=== PATIENT | male | born 1975 | race Caucasian/White ===

== ENCOUNTER 2023-04-24 19:22 | Inpatient (IN) | payer MEDICAID ==
[~2023-04-24] VITALS: Ht 165.1 cm; Wt 79.3 kg
[2023-04-24] MEDS ORDERED: HALOPERIDOL 5 MG TABLET PO PRN (23:15)
[2023-04-24 23:30] VITALS: BP 130/100; PULSE 101; RESP 20; TEMP 98.5; O2SAT 98
[2023-04-24] MEDS: ZOLPIDEM TARTRATE 10 MG TABLET PO PRN (23:58)
[2023-04-25] VITALS (11 sets, daily range): BP systolic 120–141; BP diastolic 71–96; PULSE 73–102; RESP 17–19; TEMP 97.7–98.5; O2SAT 97–98
[2023-04-25] MEDS: LORazepam 2 MG TABLET PO PRN ×2 (07:08→12:59)
[2023-04-25] MEDS ORDERED: BACITRACIN 28 GM OINTMENT TP PRN (08:45)
[2023-04-25] MEDS ORDERED: PETROLATUM,WHITE 28 GM JELLY TP PRN (08:45)
[2023-04-25] MEDS ORDERED: DOCUSATE SODIUM 100 MG CAPSULE PO PRN (08:45)
[2023-04-25] MEDS ORDERED: ACETAMINOPHEN 325 MG TABLET PO PRN (08:45)
[2023-04-25] MEDS ORDERED: IBUPROFEN 600 MG TABLET PO PRN (08:45)
[2023-04-25] MEDS ORDERED: LOPERAMIDE HCL 2 MG CAPSULE PO PRN (08:45)
[2023-04-25] MEDS ORDERED: ALBUTEROL SULFATE HFA 90 MCG/PUFF 8 GM INHALER IH PRN (08:45)
[2023-04-25] MEDS ORDERED: MAG HYDROX/AL HYDROX/SIMETH ES 30 ML SUSPENSION UDCUP PO PRN (08:45)
[2023-04-25] MEDS ORDERED: ONDANSETRON HCL 4 MG TABLET PO PRN (08:45)
[2023-04-25] MEDS ORDERED: CloNIDine HCL 0.1 MG TABLET PO PRN (08:45)
[2023-04-25] MEDS ORDERED: BENZOCAINE/MENTHOL LOZENGE PO PRN (08:45)
[2023-04-25] MEDS ORDERED: OMEPRAZOLE 20 MG CAPSULE PO PRN (08:45)
[2023-04-25] MEDS ORDERED: MAGNESIUM HYDROXIDE SUSPENSION 30 ML UDCUP PO PRN (08:45)
[2023-04-25 09:02] LABS: EOSINOPHILS % (AUTO) 1.1 % (1.0-6.0); HEMATOCRIT 44.1 % (41-53); LYMPHOCYTES # (AUTO) 2.1 K/uL (1.0-4.8); LYMPHOCYTES % (AUTO) 31.1 % (22.0-44.0); MEAN CORPUSCULAR HEMOGLOBIN 32.3 pg (26.0-34.0); MEAN CORPUSCULAR HGB CONC 34.1 G/dL (31.0-37.0); MEAN CORPUSCULAR VOLUME 95 fL (80-100); MONOCYTES # (AUTO) 0.7 K/uL (0.1-1.0); MONOCYTES % (AUTO) 10.6 % (2.0-9.0); NEUTROPHILS # (AUTO) 3.7 K/uL (1.8-7.7); NEUTROPHILS % (AUTO) 56.2 % (40.0-70.0); PLATELET COUNT (AUTO) 258 K/uL (150-450); RED BLOOD CELL COUNT(AUTO) 4.66 MIL/uL (4.50-5.90); RED CELL DISTRIBUTION WIDTH 12.8 % (11.5-14.5)
[2023-04-25 09:14] LABS: HEMOGLOBIN A1C 4.9 % (3.8-5.6)
[2023-04-25 09:29] LABS: ALANINE AMINOTRANSFERASE 28 U/L (12-78); ALBUMIN 3.3 g/dL (3.4-5.0); ALKALINE PHOSPHATASE 83 U/L (46-116); ANION GAP 10 mmol/L (8-16); ASPARTATE AMINOTRANSFERASE 30 U/L (15-37); CALCIUM, TOTAL 8.8 mg/dL (8.8-10.5); CARBON DIOXIDE 27 mmol/L (22-29); CHLORIDE 101 mmol/L (98-107); CHOL/HDL RATIO 3.5 (4.2-7.3); CHOLESTEROL 176 mg/dL (131-200); CREATININE 0.97 mg/dL (0.60-1.30); FREE T4 (FREE THYROXINE) 0.98 ng/dL (0.76-1.46); GLOMERULAR FILTR. RATE CALC > 60 mL/min (>60); GLUCOSE,RANDOM 62 mg/dL (70-110); HDL CHOLESTEROL 51 mg/dL (40-60); LDL CHOL (CALC.) 62 mg/dL (0-130); POTASSIUM 3.9 mmol/L (3.5-5.1); SODIUM SERUM 138 mmol/L (136-145); THYROID STIMULATING HORMONE 2.05 uIU/mL (0.36-3.74); TOTAL PROTEIN, SERUM 6.2 g/dL (6.4-8.2); TRIGLYCERIDES 317 mg/dL (15-150)
[2023-04-25] MEDS: NICOTINE 21 MG/24 HOUR PATCH TD PRN (12:07)
[2023-04-25] MEDS: ZOLPIDEM TARTRATE 10 MG TABLET PO PRN (22:16)
[2023-04-26 08:19] VITALS: BP 115/69; PULSE 77; RESP 18; TEMP 97.7; O2SAT 97
[2023-04-26] MEDS: LORazepam 2 MG TABLET PO PRN ×2 (10:19→21:43)
[2023-04-26] MEDS: NICOTINE 21 MG/24 HOUR PATCH TD PRN (11:01)
[2023-04-26 12:56] VITALS: BP 115/69; PULSE 77; RESP 18; TEMP 97.7; O2SAT 97
[2023-04-26 20:13] VITALS: BP 121/73; PULSE 86; RESP 18; TEMP 98.1; O2SAT 97
[2023-04-26 20:30] VITALS: BP 121/73; PULSE 89; TEMP 98.1
[2023-04-27] MEDS ORDERED: OMEGA-3/DHA/EPA/FISH OIL 1,000 MG CAPSULE PO SCH (09:00)
[2023-04-27] MEDS ORDERED: THIAMINE 100 MG TABLET PO SCH (09:00)
[2023-04-27] MEDS ORDERED: FOLIC ACID 1 MG TABLET PO SCH (09:00)
[2023-04-27 09:04] VITALS: BP 120/86; PULSE 93; RESP 18; TEMP 98.3; O2SAT 97
[2023-04-27] MEDS: NICOTINE 21 MG/24 HOUR PATCH TD PRN (11:31)
== END 2023-04-27 15:50 | disposition home or self-care (01) | DRG 751 ==
LOC: B2S 23:20
PROVIDERS: ADMIT Psychiatry & Neurology Psychiatry; ATTEND Psychiatry & Neurology Psychiatry
DX: F33.2 Major depressive disorder, recurrent severe without psychotic features (principal); F29 Unspecified psychosis not due to a substance or known physiological condition; F19.10 Other psychoactive substance abuse, uncomplicated; F41.9 Anxiety disorder, unspecified; G47.00 Insomnia, unspecified; K59.00 Constipation, unspecified; R03.0 Elevated blood-pressure reading, without diagnosis of hypertension; Z91.52 Personal history of nonsuicidal self-harm; Z88.0 Allergy status to penicillin
CPT/HCPCS: 80053; 80061; 83036; 84436; 84439; 84443; 85025; 86592